=== PATIENT | male | born 1990 | race Two or more races ===

== ENCOUNTER 2018-12-08 00:06 | Emergency (ER) | payer OTHER ==
[2018-12-08 00:14] VITALS: BP 151/89
--- NOTE | 2018-12-08 00:15 | EDPHY ---
H & P Stated Complaint: dental pain starting last night, oral surgery 3 weeks [employer] Time Seen by Provider: 12/08/18 00:15 HPI/ROS: HPI CHIEF COMPLAINT: Dental pain HISTORY OF PRESENT ILLNESS: 28-year-old male, otherwise healthy denies any significant medical history presents emergency room with lower left-sided dental pain starting yesterday. Patient 3 weeks ago had his wisdom teeth extracted, additionally on the left lower jaw line he had a bone graft and a "Phantom tooth" removed. He states he has been rather well. However yesterday developed some pain in the left lower jaw line where he had the phantom tooth removed. This been bothering him tonight and this is what prompted him to come the emergency room. He denies any fever. Denies trouble swallowing. He did start penicillin as he had leftover penicillin today. Past Medical History: Denies significant medical history Past Surgical History: [place] tooth extraction with phantom tooth extraction with bone graft. Social History: Denies drugs alcohol tobacco. Family History: Noncontributory ROS REVIEW OF SYSTEMS: 10 Systems were reviewed and negative with the exception of the elements mentioned in the history of present illness. Exam Constitutional triage nursing summary reviewed, vital signs reviewed, awake/ alert. Eyes normal conjunctivae and sclera, EOMI, PERRLA. HENT oropharynx: Unremarkable oropharynx, no signs infection, gumline on the left lower jaw line, does not appreciate an abscess. [place] tooth extraction sites look clean, not infected. No foul odor. Where the phantom tooth was extracted and I do not see any signs of infection. Mildly tender at this site. No large abscess. No Andrea's. normal inspection, atraumatic, moist mucus membranes, no epistaxis, neck supple / no meningismus, no raccoon eyes. Respiratory clear to auscultation bilaterally, normal breath sounds, no respiratory distress, no wheezing. Cardiovascular rate normal, regular rhythm, no murmur, no edema, distal pulses normal. Gastrointestinal soft, non-tender, no rebound, no guarding, normal bowel sounds, no distension, no pulsatile mass. Genitourinary no CVA tenderness. Musculoskeletal no midline vertebral tenderness, full range of motion, no calf swelling, no tenderness of extremities, no meningismus, good pulses, neurovascularly intact. Skin pink, warm, & dry, no rash, skin atraumatic. Neurologic awake, alert and oriented x 3, AAOx3, moves all 4 extremities equally, motor intact, sensory intact, CN II-XII intact, normal cerebellar, normal vision, normal speech. Psychiatric normal mood/affect. Heme/Lymph/Immune no lymphadenopathy. Differential Diagnosis: Includes but is not limited to in a particular order dental pain, dental infection, bone graft infection, apical abscess, pulpitis Medical Decision Making: Plan for this patient he is already on penicillin which I encouraged him to continue. I will give him a dose of ibuprofen here in 100 mg as well as Wykoff and Wykoff take-home pack. I do recommend he follows up closely with his dentist. I have discussed narcotics with him about how it causes sedation, nausea, GI upset, do not take more than prescribed. He will be given a take-home pack with a limited supply. Continue penicillin, and return emergency room if worsening symptoms. Follow up with his dentist he understands and is comfortable this plan. Source: Patient - Personal History Current Tetanus Diphtheria and Acellular Pertussis (TDAP): Unsure - Medical/Surgical History Other PMH: dental surgery - Social History Smoking Status: Never smoked Constitutional: Initial Vital Signs Temperature (C) 37.0 C 12/08/18 00:10 Heart Rate 89 12/08/18 00:10 Respiratory Rate 18 12/08/18 00:10 Blood Pressure 151/89 H 12/08/18 00:10 O2 Sat (%) 98 12/08/18 00:10 O2 Delivery Mode Room Air Allergies/Adverse Reactions: No Known Allergies Allergy (Unverified 12/08/18 00:09) Home Medications: Medication Instructions Recorded AMOXICILLIN 12/08/18 Departure - Departure Disposition: Home, Routine, Self-Care Clinical Impression: Pain, dental Condition: Good Instructions: Toothache (ED) Additional Instructions: 1. Return to the emergency room if you're doing worse. 2. Take her antibiotics as prescribed 3. Only take Wykoff few having severe pain, be careful this is a narcotic can make you sleepy, do not mix substances with that. Take it with food. 4. Follow up with your dentist Referrals: NONE *PRIMARY CARE P,. [Primary Care Provider] - As per Instructions [facility] [Outside] - As per Instructions [facility] [Outside] - As per Instructions [facility] [Outside] - As per Instructions Dental [facility] [Outside] - As per Instructions Dental [facility] [Outside] - As per Instructions
[2018-12-08] MEDS ORDERED: HYDROCODONE/APAP 5/325 TAB PO ONE (00:21)
[2018-12-08] MEDS ORDERED: IBUPROFEN 800 MG TAB PO ONE (00:21)
[2018-12-08] MEDS ORDERED: HYDROCOD/APAP 5/325 PREPACK#6 BTL TAKEHOME ONE (00:21)
== END 2018-12-08 01:03 | disposition home or self-care (01) ==
DX: K08.89 Other specified disorders of teeth and supporting structures (principal)